=== PATIENT | female | born 1970 | race Caucasian/White ===

== ENCOUNTER → 2017-04-25 | Outpatient (CLI) | payer OTHER ==
--- NOTE | ~2017-04-25 | ECHO ---
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 Procedure Date Date: 04/25/2017 Start: 12:33 PM Study Location: Echo Lab Technical Quality: Adequate visualization Indications:Pre-syncope. Appropriate Use Criteria: 9 Patient Status: Routine HR: 64 bpm BP: 102/56 mmHg Conclusions Summary Tilt Table test: Indication: Syncopal episodes Procedure was explained to the patient. Her resting heart rate was 62 bpm and resting BP was 102/56 mm hg. She was tilted up 70 degrees. Her BP gradually decreased to a lowest level of 83/59 mm hg at about 30 minutes and her maximum heart rate was 78/min. She was brought back to supine position and carotid message was performed on each side with no significant changes in heart rate or blood pressure. Tilt table test findings are suggestive of orthostatic hypotension. Findings and therapeutic measures were discussed with the patient and she was advised to follow up in clinic. (Communication was done through a full time staff interpreter) Stress Protocol Rest Resting HR:64 bpmResting BP:102/56 mmHg Stress Predicted HR: 174 bpm Signature dtt: AIMEE HARRIS dtd: 04/25/17 [facility] Physician Self Edit
== END | disposition disaster alternative care site (69) ==
LOC: GCAR 04-20 10:00
DX: R55 Syncope and collapse (principal)